=== PATIENT | male | born 1950 | race Caucasian/White ===

== ENCOUNTER 2016-12-16 17:21 | Emergency (ER) | payer OTHER ==
[~2016-12-16] VITALS: Ht 180.3 cm; Wt 102.1 kg
[~2016-12-16 17:21] MED LIST: CALC667C6 PO; MULT-208 PO; NAPR500T PO
[2016-12-16 18:06] VITALS: BP 152/92
[2016-12-16] MEDS ORDERED: EYE-STREAM OPHTH SOLUTION 120 ML BOTTLE. OD ONE (18:30)
[2016-12-16] MEDS ORDERED: FLUORESCEIN OPHTH TEST STRIP. OD ONE (18:30)
[2016-12-16] MEDS ORDERED: TETRACAINE 0.5% OPHTH SOLUTION 4ML BOTTLE. OD ONE (18:30)
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
[2016-12-16] MEDS ORDERED: POLY10DR OD (18:44)
[2016-12-16] MEDS ORDERED: HYDR-971 PO (18:44)
== END 2016-12-16 18:45 | disposition home or self-care (01) ==
LOC: ER 17:21
DX: S00.211A Abrasion of right eyelid and periocular area, initial encounter (principal); Z91.018 Allergy to other foods; X58.XXXA Exposure to other specified factors, initial encounter; Y93.89 Activity, other specified; Y92.89 Other specified places as the place of occurrence of the external cause; Y99.8 Other external cause status
CPT/HCPCS: 99283

== ENCOUNTER 2017-06-08 21:13 | Emergency (ER) | payer BC, OTHER ==
[~2017-06-08] VITALS: Ht 180.3 cm; Wt 102.1 kg
[~2017-06-08 21:13] MED LIST changes: +HYDR-971 PO; +POLY10DR OD
[2017-06-08 21:53] LABS: BASO % 1 % (0-3); EOS % 3 % (0-3); HEMATOCRIT 43.2 % (39.0-53.0); HEMOGLOBIN 14.6 g/dL (13.0-17.5); LYMPH # 1.8 x10^3/uL (1.0-4.8); LYMPH % 34 % (24-48); MEAN CORPUSCULAR HEMOGLOBIN 31 pg (25-35); MEAN CORPUSCULAR HGB CONC 34 g/dL (31-37); MEAN CORPUSCULAR VOLUME 92 fL (79-100); MONO % 14 % (0-9); NEUT % 48 % (31-73); PLATELET COUNT 204 x10^3/uL (140-400); RED BLOOD COUNT 4.67 x10^6/uL (4.30-5.70); RED CELL DISTRIBUTION WIDTH 13.3 % (11.5-14.5); WHITE BLOOD COUNT 5.4 x10^3/uL (4.0-11.0)
[2017-06-08] MEDS ORDERED: IV NORMAL SALINE 1000ML BAG 1,000 ML IV ONE (22:00)
[2017-06-08 22:03] LABS: CALCIUM 8.9 mg/dL (8.5-10.1); CREATININE 1.2 mg/dL (0.7-1.3); POTASSIUM 4.1 mmol/L (3.5-5.1); PROTHROMBIN TIME PATIENT 12.5 SEC (11.7-14.0)
[2017-06-08 22:11] LABS: ALBUMIN 3.8 g/dL (3.4-5.0); ALBUMIN/GLOBULIN RATIO 1.1 (1.0-1.7); TOTAL BILIRUBIN 0.4 mg/dL (0.2-1.0); TOTAL PROTEIN 7.3 g/dL (6.4-8.2)
[2017-06-08 22:59] LABS: NEG OBC FOB NEG; POS OBC FOB POS
--- NOTE | 2017-06-08 23:12 | PHYS DOC ---
Past Medical History Past Medical History: Hypertension, Other Additional Past Medical Histor: indigestion Past Surgical History: Other Additional Past Surgical Histo: vericose vein bilat Alcohol Use: Rarely Drug Use: None Adult General Chief Complaint Chief Complaint: BLOODY STOOL HPI HPI Patient is a 66 year old male who presents ambulatory to the ED with the complaint of bloody stools today. Patient states he has had loose stools for one or 2 days which he attributed to eating a lot of fresh vegetables. This morning he had a loose stool that was really dark in color, not black but very dark brown. Then early this afternoon he had a loose stool that had quite a bit of blood in, then later today had a third stool that appeared to just be liquid blood, no stool but just straight blood. He's had no nausea or vomiting. He's never had blood in his stool before. He has not really had abdominal pain, he has had the feeling that he needed to have a bowel movement like a fullness and slight cramping but no pain. He denies fever or chills. PCP Dr. King JOHAN Chong, his colonoscopy is up to date, his last one was 2-3 years ago. He does have a family history of colon cancer in his father and grandfather. Review of Systems Review of Systems Constitutional: Denies fever or chills [] Eyes: Denies change in visual acuity, redness, or eye pain [] HENT: Denies nasal congestion or sore throat [] Respiratory: Denies cough or shortness of breath [] Cardiovascular: No additional information not addressed in HPI [] GI: Denies abdominal pain, nausea, vomiting, bloody stools or diarrhea [] : Denies dysuria or hematuria [] Musculoskeletal: Denies back pain or joint pain [] Integument: Denies rash or skin lesions [] Neurologic: Denies headache, focal weakness or sensory changes [] Endocrine: Denies polyuria or polydipsia [] Current Medications Current Medications Current Medications Medications (Trade) Dose Ordered Sig/Fabrizio Start Time Stop Time Status Last Admin Dose Admin Sodium Chloride 1,000 ml @ 1,000 mls/hr 1X ONCE 06/08/17 22:00 06/08/17 22:59 DC 06/08/17 21:58 1,000 MLS/HR Allergies Allergies Allergies Coded Allergies Type Severity Reaction Last Updated Verified mushroom Allergy Intermediate Nausea 12/16/15 Yes No Known Allergies Allergy Unknown 10/26/15 Yes Physical Exam Physical Exam Constitutional: Well developed, well nourished, no acute distress, non-toxic appearance. [] HENT: Normocephalic, atraumatic, bilateral external ears normal, oropharynx moist, no oral exudates, nose normal. [] Eyes: PERRLA, EOMI, conjunctiva normal, no discharge. [] Neck: Normal range of motion, no tenderness, supple, no stridor. [] Cardiovascular:Heart rate regular rhythm, no murmur [] Lungs & Thorax: Bilateral breath sounds clear to auscultation [] Abdomen: Bowel sounds normal, soft, no tenderness, no masses, no pulsatile masses. [] Skin: Warm, dry, no erythema, no rash. [] Back: No tenderness, no CVA tenderness. [] Extremities: No tenderness, no cyanosis, no clubbing, ROM intact, no edema. [] Neurologic: Alert and oriented X 3, normal motor function, normal sensory function, no focal deficits noted. [] Psychologic: Affect normal, judgement normal, mood normal. [] Current Patient Data Vital Signs Vital Signs Date Time Temp Pulse Resp B/P (MAP) Pulse Ox O2 Delivery O2 Flow Rate FiO2 06/08/17 21:20 98.4 77 16 167/94 (118) 97 Room Air 98.4 Lab Values Laboratory Tests Test 06/08/17 21:27 06/08/17 22:46 White Blood Count 5.4 x10^3/uL (4.0-11.0) Red Blood Count 4.67 x10^6/uL (4.30-5.70) Hemoglobin 14.6 g/dL (13.0-17.5) Hematocrit 43.2 % (39.0-53.0) Mean Corpuscular Volume 92 fL (79-100) Mean Corpuscular Hemoglobin 31 pg (25-35) Mean Corpuscular Hemoglobin Concent 34 g/dL (31-37) Red Cell Distribution Width 13.3 % (11.5-14.5) Platelet Count 204 x10^3/uL (140-400) Neutrophils (%) (Auto) 48 % (31-73) Lymphocytes (%) (Auto) 34 % (24-48) Monocytes (%) (Auto) 14 % (0-9) H Eosinophils (%) (Auto) 3 % (0-3) Basophils (%) (Auto) 1 % (0-3) Neutrophils # (Auto) 2.6 x10^3uL (1.8-7.7) Lymphocytes # (Auto) 1.8 x10^3/uL (1.0-4.8) Monocytes # (Auto) 0.8 x10^3/uL (0.0-1.1) Eosinophils # (Auto) 0.2 x10^3/uL (0.0-0.7) Basophils # (Auto) 0.0 x10^3/uL (0.0-0.2) Prothrombin Time 12.5 SEC (11.7-14.0) Prothrombin Time INR 1.0 (0.8-1.1) PTT 30 SEC (24-38) Sodium Level 139 mmol/L (136-145) Potassium Level 4.1 mmol/L (3.5-5.1) Chloride Level 103 mmol/L (98-107) Carbon Dioxide Level 25 mmol/L (21-32) Anion Gap 11 (6-14) Blood Urea Nitrogen 16 mg/dL (8-26) Creatinine 1.2 mg/dL (0.7-1.3) Estimated GFR (Cockcroft-Gault) 61.0 BUN/Creatinine Ratio 13 (6-20) Glucose Level 97 mg/dL (70-99) Calcium Level 8.9 mg/dL (8.5-10.1) Total Bilirubin 0.4 mg/dL (0.2-1.0) Aspartate Amino Transferase (AST) 22 U/L (15-37) Alanine Aminotransferase (ALT) 31 U/L (16-63) Alkaline Phosphatase 73 U/L (46-116) Total Protein 7.3 g/dL (6.4-8.2) Albumin 3.8 g/dL (3.4-5.0) Albumin/Globulin Ratio 1.1 (1.0-1.7) Stool Occult Blood Positive (NEG) Laboratory Tests 06/08/17 21:27 Laboratory Tests 06/08/17 21:27 EKG EKG [] Radiology/Procedures Radiology/Procedures [] Course & Med Decision Making Course & Med Decision Making Pertinent Labs and Imaging studies reviewed. (See chart for details) Patient had 1 stool that appeared to be mostly chris blood in the ED measuring less than 10 mL of blood. 66-year-old male presented with 2 or 3 bloody stools today at home, was in the emergency department for 2 hours and had only one small bloody stool here. He has no fever, no abdominal pain or tenderness, no white count. His hemoglobin is very stable at 14.6. He was given a liter of IV normal saline while here. He was never tachycardic. I discussed with the patient and his . I feel discharged to home with close follow-up versus admission would both be reasonable options. The patient is not on any blood thinners, not even aspirin. The patient prefers to be discharged. He lives close by and can return if necessary. We discussed return precautions. He does have a GI physician who he can contact on Saturday. See instructions for plan. [] Dragon Disclaimer Dragon Disclaimer This electronic medical record was generated, in whole or in part, using a voice recognition dictation system. Departure Departure Impression: Primary Impression: Lower GI bleed Disposition: HOME, SELF-CARE Condition: STABLE Referrals: Jeremy HARVEY MD (PCP) Additional Instructions: As we discussed, drink plenty of liquids over the next day. Stick to mostly clear liquids. Call on Saturday morning to report how you are doing to Dr. Chong's office. You likely need to have a colonoscopy scheduled soon, How soon will depend on whether you continue to have bleeding or not. If you continue to have a large volume of blood several times, you may need to return to emergency. If you become weak, faint, or lightheaded, return right away. If you are concerned about the amount of blood you're losing, return to be hospitalized. RG SIGALA MD Jun 08, 2017 23:12
[2017-06-08 23:16] VITALS: BP 137/95
== END 2017-06-08 23:38 | disposition home or self-care (01) ==
LOC: ER 21:13
DX: K92.2 Gastrointestinal hemorrhage, unspecified (principal); I10 Essential (primary) hypertension; Z91.018 Allergy to other foods
CPT/HCPCS: 36415; 80053; 82274; 85027; 85610; 85730; 96360; 99284; J7030

== ENCOUNTER → 2017-11-08 | Outpatient (CLI) | payer MEDICARE | END | disposition home or self-care (01) | LOC: KCIC 11:12 | DX: J40 Bronchitis, not specified as acute or chronic (principal); R05 Cough | CPT/HCPCS: 71046 ==

== ENCOUNTER → 2018-03-25 | Outpatient (CLI) | payer MEDICARE | END | disposition home or self-care (01) | LOC: KCIC US 14:57 | DX: I82.492 Acute embolism and thrombosis of other specified deep vein of left lower extremity (principal) | CPT/HCPCS: 93971 ==

== ENCOUNTER → 2018-07-22 | Outpatient (CLI) | payer MEDICARE ==
[2018-01-31 11:00] VITALS: BP 106/65
[~2018-07-22] MED LIST changes: +APIX5TAB PO; +LOSA100T7 PO; +NAPR-683 PO; -NAPR500T PO; +OMEP20CA9 PO
--- NOTE | 2018-07-22 16:06 | KCIC ---
EXAM: Left lower extremity venous Doppler sonogram. HISTORY: DVT follow-up. TECHNIQUE: Kelly scale and color Doppler sonographic evaluation of the left lower extremity veins with spectral waveform analysis was performed. FINDINGS: There is stable chronic appearing thrombus within the anterior left peroneal vein. There is normal color flow, normal compressibility and there are normal spectral waveforms in the remainder of the lower extremity veins. IMPRESSION: Stable chronic appearing prominence within the anterior left peroneal vein. Electronically signed by: Billie Kay MD (07/22/2018 4:03 PM) [place] [id number]
== END | disposition home or self-care (01) ==
LOC: KCIC US 15:29
PROVIDERS: ATTEND Family Medicine
DX: I82.592 Chronic embolism and thrombosis of other specified deep vein of left lower extremity (principal); I25.10 Atherosclerotic heart disease of native coronary artery without angina pectoris; Z86.711 Personal history of pulmonary embolism; Z85.6 Personal history of leukemia; Z91.018 Allergy to other foods; Z80.0 Family history of malignant neoplasm of digestive organs; Z80.6 Family history of leukemia; Z82.49 Family history of ischemic heart disease and other diseases of the circulatory system
CPT/HCPCS: 93971

== ENCOUNTER → 2018-11-13 | Outpatient (CLI) | payer MEDICARE ==
[2018-01-31 11:00] VITALS: BP 106/65
[~2018-11-13] MED LIST changes: +HYDR-3164 PO; -HYDR-971 PO; +LOSA100T14 PO; -LOSA100T7 PO; +OMEP20CA10 PO; -OMEP20CA9 PO
--- NOTE | 2018-11-13 10:39 | CARD ---
MR#: [id number] Date of Study: 11/13/2018 Ordering Physician: IVN CARIAS, Referring Physician: VIN CARIAS, Tech: Linda Nichols [facility] APPROVED REPORT EXAM: Two-dimensional and M-mode echocardiogram with Doppler and color Doppler. Other Information Quality : GoodHR: 85bpm Rhythm : PVC's INDICATION History of PE 2D DIMENSIONS RVDd3.3 (2.9-3.5cm)Left Atrium(2D)4.0 (1.6-4.0cm) IVSd1.1 (0.7-1.1cm)Aortic Root(2D)3.6 (2.0-3.7cm) LVDd5.1 (3.9-5.9cm)LVOT Diameter2.6 (1.8-2.4cm) PWd0.9 (0.7-1.1cm)LVDs3.1 (2.5-4.0cm) FS (%) 40.1 %SV89.0 ml LVEF(%)69.0 (>50%) M-Mode DIMENSIONS Left Atrium(MM)4.89 (2.5-4.0cm)Aortic Root3.98 (2.2-3.7cm) Aortic Valve AoV Peak Fam.124.5cm/sAoV VTI24.3cm AO Peak GR.6.2mmHgLVOT Peak Fam.88.9cm/s AO Mean GR.3mmHgAVA (VMAX)3.76cm2 ASHLEY (VTI)3.50cm2 Mitral Valve MV E Yvwojfev26.1cm/sMV DECEL ALMU767mx MV A Mezkcfwk347.8cm/sE/A Ratio0.8 MV A Tngcuhky516di Pulmonary Valve PV Peak Qxpjukti55.4cm/s Tricuspid Valve TR P. Pcllzxln805vz/sRAP GJGLCHXZ0ryNh TR Peak Gr.10wcEzNYQC51ttBu LEFT VENTRICLE The left ventricle is normal size. There is mild concentric left ventricular hypertrophy. The left ve ntricular systolic function is normal and the ejection fraction is within normal range. The Ejection Fraction is 60-65%. There is normal LV segmental wall motion. The left ventricular diastolic function and filling is normal for age. No left ventricle thrombus noted on this study. RIGHT VENTRICLE The right ventricle is borderline dilated. There is normal right ventricular wall thickness. The righ t ventricular systolic function is normal. ATRIA The left atrium is mildly dilated. The right atrium size is normal. The interatrial septum is intact with no evidence for an atrial septal defect or patent foramen ovale as noted on 2-D or Doppler imagi ng. AORTIC VALVE The aortic valve is mildly sclerotic. The aortic valve is trileaflet. Doppler and Color Flow revealed no significant aortic regurgitation. There is no significant aortic valvular stenosis. MITRAL VALVE The mitral valve is normal in structure and function. There is no evidence of mitral valve prolapse. There is no mitral valve stenosis. Doppler and Color Flow revealed no mitral valve regurgitation note d. TRICUSPID VALVE The tricuspid valve is normal in structure and function. Doppler and Color Flow revealed trace tricus pid regurgitation. The PA pressure was estimated at 28 mmHg. There is no tricuspid valve prolapse or vegetation. There is no tricuspid valve stenosis. PULMONIC VALVE Pulmonic valve not well visualized. GREAT VESSELS The aortic root is mildly enlarged. The ascending aorta is normal in size. The IVC is normal in size and collapses >50% with inspiration. PERICARDIAL EFFUSION There is no evidence of significant pericardial effusion. Critical Notification Critical Value: No <Conclusion> The left ventricular systolic function is normal and the ejection fraction is within normal range. Th e Ejection Fraction is 60-65%. There is normal LV segmental wall motion. Signed by : Nash Hartley, Electronically Approved : 11/13/2018 10:37:51
== END | disposition home or self-care (01) ==
LOC: ECHO 09:56
PROVIDERS: ATTEND Internal Medicine Cardiovascular Disease
DX: I35.8 Other nonrheumatic aortic valve disorders (principal); I10 Essential (primary) hypertension
CPT/HCPCS: 93306

== ENCOUNTER → 2018-11-18 | Outpatient (CLI) | payer MEDICARE ==
[2018-01-31 11:00] VITALS: BP 106/65
[2018-11-18 11:35] LABS: BASO # 0.1 x10^3/uL (0.0-0.2); BASO % 1 % (0-3); EOS # 0.2 x10^3/uL (0.0-0.7); EOS % 4 % (0-3); HEMOGLOBIN 14.9 g/dL (13.0-17.5); LYMPH # 1.8 x10^3/uL (1.0-4.8); LYMPH % 31 % (24-48); MEAN CORPUSCULAR HEMOGLOBIN 31 pg (25-35); MEAN CORPUSCULAR HGB CONC 35 g/dL (31-37); MEAN CORPUSCULAR VOLUME 90 fL (79-100); MONO # 0.7 x10^3/uL (0.0-1.1); MONO % 12 % (0-9); NEUT % 53 % (31-73); PLATELET COUNT 214 x10^3/uL (140-400); RED BLOOD COUNT 4.76 x10^6/uL (4.30-5.70); RED CELL DISTRIBUTION WIDTH 13.2 % (11.5-14.5); WHITE BLOOD COUNT 5.7 x10^3/uL (4.0-11.0)
[2018-11-18 12:11] LABS: CALCIUM 9.4 mg/dL (8.5-10.1); GFR 74.8; POTASSIUM 4.2 mmol/L (3.5-5.1)
== END | disposition home or self-care (01) ==
LOC: LAB 11:13
PROVIDERS: ATTEND Internal Medicine Cardiovascular Disease
DX: I49.3 Ventricular premature depolarization (principal); Z86.711 Personal history of pulmonary embolism
CPT/HCPCS: 36415; 80048; 83735; 85025

== ENCOUNTER → 2018-11-25 | Outpatient (CLI) | payer MEDICARE ==
[2018-01-31 11:00] VITALS: BP 106/65
[~2018-11-25] MED LIST changes: -OMEP20CA10 PO; +OMEP20CA9 PO
--- NOTE | 2018-11-25 13:50 | KCIC ---
LEFT LOWER EXTREMITY ULTRASOUND WITH DOPPLER 11/25/2018 12:30 PM Clinical Information: History of acute DVT in the left lower extremity.. Comparison: Venous Doppler July 22, 2018. Technique: Multiple grayscale, color Doppler, and spectral Doppler sonographic images of the lower extremity venous structures were obtained. Findings: Greater saphenous vein is patent. The left common femoral, femoral, and popliteal veins exhibit normal compression, respiratory phasicity, and augmentation. No intraluminal thrombi are identified. Color Doppler flow is demonstrated in the left peroneal veins. Small chronic nonocclusive thrombus is identified within the anterior posterior tibial vein in the proximal calf. Impression: 1. Nonocclusive thrombus is identified in the posterior tibial vein with the proximal calf. Findings are not significantly changed since prior examination. Electronically signed by: Penelope Parker MD (11/25/2018 1:46 PM) [facility]
== END | disposition home or self-care (01) ==
LOC: KCIC US 11:55
PROVIDERS: ATTEND Family Medicine
DX: I82.442 Acute embolism and thrombosis of left tibial vein (principal)
CPT/HCPCS: 93971

== ENCOUNTER → 2019-12-15 | Outpatient (CLI) | payer MEDICARE ==
[2018-01-31 11:00] VITALS: BP 106/65
[~2019-12-15] MED LIST changes: +OMEP20CA16 PO; -OMEP20CA9 PO
--- NOTE | 2019-12-16 13:21 | RAD ---
MR#: [id number] Date of Study: 12/15/2019 Ordering Physician: VIN CARIAS, Referring Physician: VIN CARIAS, Tech: Jean Claude Buck MBA, RDMS, RVT, RDCS, RTR APPROVED REPORT Patient Location : OUT-PATIENT Indications Lower Extremity Edema : Bilateral Lesser Saphenous Veins (LSV) Significant venous reflux is noted in the Left LSV. Findings The right and left greater saphenous veins appear to be previously stripped and not visualized on the study. The right lesser saphenous vein is also not visualized on the study The left lesser saphenous vein measures 4.8 mm and has a maximum reflux time of 3.3 seconds. Critical Notification Critical Value: No <Conclusion> 1. Positive for reflux and left lesser saphenous vein. The bilateral greater and right lesser sapheno us veins were not visualized and may have been previously ablated/stripped. Signed by : Nash Hartley, Electronically Approved : 12/15/2019 09:53:48
--- NOTE | 2019-12-16 13:21 | CARD ---
MR#: [id number] Date of Study: 12/15/2019 Ordering Physician: VIN CARIAS, Referring Physician: VIN CARIAS, Tech: Nida Weinstien [facility] APPROVED REPORT EXAM: Two-dimensional and M-mode echocardiogram with Doppler and color Doppler. Other Information Quality : GoodHR: 80bpm Rhythm : NSRTechnically limited study due to body habitus. INDICATION History of pulmonary embolism. HTN. 2D DIMENSIONS RVDd3.8 (2.9-3.5cm)IVSd1.0 (0.7-1.1cm) Aortic Root(2D)3.7 (2.0-3.7cm)LVDd5.2 (3.9-5.9cm) LVOT Diameter2.5 (1.8-2.4cm)PWd1.0 (0.7-1.1cm) LVDs3.6 (2.5-4.0cm)FS (%) 31.6 % SV77.1 mlLVEF(%)59.2 (>50%) Aortic Valve AoV Peak Fam.144.8cm/Diony Peak GR.8.4mmHg LVOT Peak Fam.99.5cm/sAVA (VMAX)3.40cm2 Mitral Valve MV E Akpjyutx93.5cm/sMV DECEL [id number] MV A Rhgodeyv13.5cm/sE/A Ratio0.8 MV A Kprojusy373gx Pulmonary Valve PV Peak Gdqwktyt88.2cm/s Tricuspid Valve TR P. Bfyqjitg360pk/sTR Peak Gr.23mmHg Pulmonary Vein S1 Oiqrrpeq61.3cm/sD2 Xzcizbiw94.0cm/s PVa ubeoxpeq851ufhe LEFT VENTRICLE The left ventricle is normal size. Mild proximal septal thickening is noted. The left ventricular sys tolic function is normal. The Ejection Fraction is 55-60%. There is normal LV segmental wall motion. Transmitral Doppler flow pattern is Grade I-abnormal relaxation pattern. RIGHT VENTRICLE The right ventricle is normal size. The right ventricular systolic function is normal. ATRIA The left atrium size is normal. The right atrium size is normal. The atrial septum is aneurysmal. No shunting noted with color doppler. AORTIC VALVE The aortic valve is normal in structure and function. No aortic regurgitation. No aortic valvular tarah nosis. MITRAL VALVE The mitral valve is normal in structure and function. There is no evidence of mitral valve prolapse. There is no mitral valve stenosis. No mitral valve regurgitation noted. TRICUSPID VALVE The tricuspid valve is normal in structure and function. Trace tricuspid regurgitation. Estimated PAP is 23mmHg plus the right atrial pressure. There is no tricuspid valve prolapse or vegetation. There is no tricuspid valve stenosis. PULMONIC VALVE Trace pulmonic valvular regurgitation. There is no pulmonic valvular stenosis. GREAT VESSELS The aortic root is normal in size. The ascending aorta is mildly dilated at 4.0 cm The IVC was not we ll visualized. PERICARDIAL EFFUSION There is no evidence of significant pericardial effusion. Critical Notification Critical Value: No <Conclusion> The left ventricular systolic function is normal. The Ejection Fraction is 55-60%. There is normal LV segmental wall motion. The atrial septum is aneurysmal. No shunting noted with color doppler. Trace tricuspid regurgitation. Estimated PAP is 23mmHg plus the right atrial pressure. The ascending aorta is mildly dilated at 4.0 cm Signed by : Nash Hartley, Electronically Approved : 12/15/2019 09:30:12
--- NOTE | 2019-12-16 13:21 | RAD ---
MR#: [id number] Date of Study: 12/15/2019 Ordering Physician: VIN CARIAS, Referring Physician: VIN CARIAS, Tech: Jean Claude Buck MBA, RDMS, RVT, RDCS, RTR APPROVED REPORT Bilateral Lower Extremity Venous Study for DVT Patient Location: OUT-PATIENT Indications Lower Extremity Edema: Bilateral Vein Imaging (Right) CFV (R): Compressible SFJ (R): Compressible FEM (R): Compressible POP (R): Compressible DFV (R): Compressible PTV (R): Spontaneous GSV (R): STRIPPED Peroneals (R): Spontaneous Vein Imaging (Left) CFV (L): Compressible SFJ (L): Compressible FEM (L): Compressible POP (L): Compressible DFV (L): Compressible GSV (L): ABLATED, ABSENTFLOW Peroneals (L): Spontaneous Doppler Evaluation (Right) CFV (R): Spontaneous POP (R):Spontaneous Doppler Evaluation (Left) CFV (L):Spontaneous POP (L):Spontaneous Findings The bilateral lower extremity deep veins were evaluated for thrombus with color Doppler, spectral and grayscale images. On the right the grayscale images of the common femoral, superficial femoral and popliteal veins do n ot demonstrate any evidence of thrombus and these veins appear to be compressible. The below-knee vei ns were not well visualized but grossly appear to be compressible. Spectral imaging and color Doppler do not reveal any evidence of obstruction to flow with normal respirophasic variation above the knee . Below the knee there is spontaneous flow noted. On the left, the grayscale images of the common femoral, superficial femoral and popliteal veins do n ot demonstrate any evidence of thrombus and these veins appear to be compressible. The below-knee vei ns again were not well visualized but grossly appear to be compressible. Spectral imaging and color D oppler do not reveal any evidence of obstruction to flow with normal respirophasic variation above th e knee. The below-knee veins demonstrate spontaneous flow. Critical Notification Critical Value: No <Conclusion> 1. No evidence of DVT in the BLE Signed by : Nash Hartley, Electronically Approved : 12/15/2019 09:51:44
== END | disposition home or self-care (01) ==
LOC: US 07:55
PROVIDERS: ATTEND Internal Medicine Cardiovascular Disease
DX: I10 Essential (primary) hypertension (principal); R60.0 Localized edema; Z86.711 Personal history of pulmonary embolism
CPT/HCPCS: 93306; 93970

== ENCOUNTER → 2020-01-20 | Outpatient (CLI) | payer MEDICARE ==
[2018-01-31 11:00] VITALS: BP 106/65
[2020-01-20 10:48] LABS: BASO % 1 % (0-3); EOS # 0.2 x10^3/uL (0.0-0.7); EOS % 4 % (0-3); HEMATOCRIT 44.3 % (39.0-53.0); HEMOGLOBIN 15.2 g/dL (13.0-17.5); LYMPH # 1.5 x10^3/uL (1.0-4.8); LYMPH % 29 % (24-48); MEAN CORPUSCULAR HEMOGLOBIN 32 pg (25-35); MEAN CORPUSCULAR HGB CONC 34 g/dL (31-37); MEAN CORPUSCULAR VOLUME 92 fL (79-100); MONO # 0.5 x10^3/uL (0.0-1.1); MONO % 9 % (0-9); NEUT # 2.9 x10^3/uL (1.8-7.7); NEUT % 57 % (31-73); PLATELET COUNT 216 x10^3/uL (140-400); RED BLOOD COUNT 4.82 x10^6/uL (4.30-5.70); RED CELL DISTRIBUTION WIDTH 13.4 % (11.5-14.5); WHITE BLOOD COUNT 5.2 x10^3/uL (4.0-11.0)
[2020-01-20 11:05] LABS: ALBUMIN 3.5 g/dL (3.4-5.0); CALCIUM 8.9 mg/dL (8.5-10.1); CHOLESTEROL/HDL RATIO 3.3; CREATININE 1.1 mg/dL (0.7-1.3); GFR 66.8; POTASSIUM 4.3 mmol/L (3.5-5.1); TOTAL BILIRUBIN 0.4 mg/dL (0.2-1.0); TOTAL PROTEIN 6.9 g/dL (6.4-8.2)
== END | disposition home or self-care (01) ==
LOC: LAB 10:24
PROVIDERS: ATTEND Family Medicine
DX: I10 Essential (primary) hypertension (principal); Z12.5 Encounter for screening for malignant neoplasm of prostate; Z13.220 Encounter for screening for lipoid disorders
CPT/HCPCS: 36415; 80053; 80061; 85025; G0103

== ENCOUNTER → 2020-01-20 | Outpatient (CLI) | payer MEDICARE ==
[2018-01-31 11:00] VITALS: BP 106/65
--- NOTE | 2020-01-20 12:52 | KCIC ---
EXAM: PA and lateral views DATE: 01/20/2020 12:00 AM INDICATION: BRONCHITIS, PRODUCTIVE COUGH A FEW MONTHS. NO FEVER COMPARISON: No Prior FINDINGS/ IMPRESSION: Mild emphysematous changes are seen. Heart is not enlarged. Aorta is mildly tortuous. No lobar consolidation. No pleural effusion or pneumothorax. Electronically signed by: Ashwin Dale MD (01/20/2020 12:50 PM) [id number]
--- NOTE | 2020-01-20 12:54 | KCIC ---
EXAM: 3 Views Right Shoulder DATE: 01/20/2020 12:00 AM INDICATION: Right shoulder pain COMPARISON: No Prior FINDINGS: There is no evidence for acute fracture or dislocation. AC joint is congruent. AC joint degenerative changes are seen. Small inferior glenohumeral joint osteophytes are seen. Humeral head is not high riding. IMPRESSION: 1. No acute fracture or dislocation. 2. AC joint and glenohumeral joint degenerative changes are seen. Electronically signed by: Ashwin Dale MD (01/20/2020 12:51 PM) [id number]
== END | disposition home or self-care (01) ==
LOC: KCIC 10:52
PROVIDERS: ATTEND Family Medicine
DX: M19.011 Primary osteoarthritis, right shoulder (principal); M25.711 Osteophyte, right shoulder; J43.9 Emphysema, unspecified; Q25.46 Tortuous aortic arch
CPT/HCPCS: 71046; 73030

== ENCOUNTER → 2020-05-25 | Outpatient (CLI) | payer MEDICARE ==
[2018-01-31 11:00] VITALS: BP 106/65
--- NOTE | 2020-05-25 13:06 | KCIC ---
EXAM: Lumbar spine, 5 views. HISTORY: Left leg weakness and numbness. COMPARISON: None. FINDINGS: 5 views of the lumbar spine are obtained. There are 4 nonrib-bearing vertebral segments. This is a normal variant. For the purposes of this dictation, the last segment is considered a sacralized L5 segment with rudimentary L5-S1 disc. There is degenerative endplate remodeling at multiple levels. There is facet arthropathy at the lower lumbar levels. No fracture or significant listhesis is seen. IMPRESSION: 1. Transitional lumbosacral segment, a normal variant. 2. Multilevel endplate remodeling and facet arthropathy. Electronically signed by: Billie Kay MD (05/25/2020 1:03 PM) [id number]
== END | disposition home or self-care (01) ==
LOC: KCIC 12:44
PROVIDERS: ATTEND Family Medicine
DX: M47.816 Spondylosis without myelopathy or radiculopathy, lumbar region (principal); M51.87 Other intervertebral disc disorders, lumbosacral region; R29.898 Other symptoms and signs involving the musculoskeletal system
CPT/HCPCS: 72110

== ENCOUNTER → 2020-06-20 | Outpatient (CLI) | payer MEDICARE ==
[2018-01-31 11:00] VITALS: BP 106/65
[~2020-06-20] MED LIST changes: +ACYC800T PO; +GABA300C18 PO; +PRED-220 PO; +TRAM50TA PO
--- NOTE | 2020-06-20 13:58 | KCIC ---
EXAM: Lumbar spine MRI without contrast. HISTORY: L4 radiculopathy. TECHNIQUE: Multiplanar, multisequence magnetic resonance imaging of the lumbar spine was performed without contrast. COMPARISON: Radiographs dated 05/25/2020. FINDINGS: There is a transitional sacral segment. This is considered a partially sacralized L5 segment based on the number of nonrib-bearing vertebral segments on the comparison radiographs. There is mild lumbar hyperlordosis. There is minimal retrolisthesis of L1 on L2 and L2 on L3. There is grade 1 anterolisthesis of L5 on S1, measuring 3 mm. There is no fracture or suspicious osseous lesion. The conus terminates at L1. At L1-L2, there is a disc bulge and endplate remodeling. There is mild bilateral facet arthropathy. There is mild retrolisthesis. There is mild bilateral foraminal stenosis. At L2-L3, there is a disc bulge and endplate osteophytosis. There is mild bilateral facet arthropathy. There is mild retrolisthesis. There is mild bilateral foraminal stenosis. At L3-L4, there is a right foraminal disc protrusion with 3 mm superior extrusion and osteophyte complex. There is also a broad-based left lateral recess to extra foraminal disc protrusion and 4 mm superior extrusion with osteophyte complex. These are superimposed on a disc bulge and endplate remodeling. There is moderate left facet arthropathy. There is moderate to severe right and severe left foraminal stenosis with abutment of the exiting L3 nerve roots. There is mild central canal stenosis. At L4-L5, there is a shallow broad-based posterior central to left paracentral disc protrusion and annular tear with minimal inferior extrusion superimposed on a disc bulge and endplate osteophytosis. There is mild bilateral facet arthropathy. There is mild right and moderate left foraminal stenosis. There is narrowing of the left lateral recess and abutment of the traversing left L5 nerve root. At L5-S1, there is a rudimentary disc at this level. There is grade 1 anterolisthesis. There is mild left facet arthropathy. There is no stenosis. IMPRESSION: 1. Transitional lumbosacral segment, considered a partially sacralized L5 segment for this dictation. 2. Multilevel degenerative change involving the lumbar spine, described in detail above. This is associated with mild lateral foraminal stenosis at L1-L2 and L2-L3, moderate to severe right and severe left foraminal stenosis with abutment the exiting L3 nerve roots and mild central canal stenosis at L3-L4, and mild right and moderate left foraminal stenosis and narrowing of the left lateral recess at L4-L5. 3. Mild multilevel listhesis, described above. Electronically signed by: Billie Kay MD (06/20/2020 1:55 PM) [id number]
== END | disposition home or self-care (01) ==
LOC: KCIC MRI 12:51
PROVIDERS: ATTEND Family Medicine
DX: M48.061 Spinal stenosis, lumbar region without neurogenic claudication (principal); M47.26 Other spondylosis with radiculopathy, lumbar region; M43.17 Spondylolisthesis, lumbosacral region; M25.78 Osteophyte, vertebrae; M47.27 Other spondylosis with radiculopathy, lumbosacral region
CPT/HCPCS: 72148

== ENCOUNTER → 2020-06-24 | Outpatient (CLI) | payer MEDICARE ==
[2018-01-31 11:00] VITALS: BP 106/65
[~2020-06-24] MED LIST changes: +IOHEXOL 180 MG/ML 10 ML VIAL. ONE; +methylPREDNISolone ACETATE 40 MG/ML VIAL. ONE; +methylPREDNISolone ACETATE 80 MG/ML VIAL. ONE
--- NOTE | 2020-06-24 13:59 | PDOC2 ---
INITIAL PAIN CONSULT DATE OF SERVICE: DOS: DATE: 06/24/20 TIME: 13:51 CHIEF COMPLAINT: Chief Complaint: Low back and left lower extremity pain HISTORY OF PRESENT ILLNESS: 69-year-old male presents with history of pain low back left lower extremity for approximately 1 month. Patient reports the pain came up without any specific injury or accident that is aware of just got worse over time and is now been increasing in the low back left lower extremity anterior thigh lateral thigh medial thigh medial lower leg and anterior lower leg to the ankle. Patient reports it is constant radiating changes during the day worse with activity walking standing and changing positions better with sitting or laying down does awaken her from sleep about 3-4 times a night however patient reports does not affect his bowel bladder control does affect his build to walk he is not use any assistive devices to ambulate however. Patient tried chiropractic treatment which was helpful for short period time so was acupuncture again mid limited relief. Patient has been taking tramadol as well as ibuprofen both of which decreased the pain but only to a mild extent. 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 Patient did have a lumbar MRI scan of the lumbar spine showing multilevel degenerative change lateral foraminal stenosis L1-L2 and L2-L3 moderate to severe right and severe left foraminal stenosis with abutment of the exiting L3 nerve roots and mild central canal stenosis L3-4 mild right and moderate left foraminal stenosis and narrowing at the left lateral recess at L4- 5. PAST MEDICAL HISTORY: PMH: Hypertension, arthritis PREVIOUS SURGERIES: Past Surgical Hx: Tonsillectomy vein stripping bilaterally CURRENT MEDICATIONS: Current Meds: Active Scripts Medications Dose Route/Sig Max Daily Dose Days Date Category Tramadol Hcl 50 Mg Tablet 50 Mg PO DAILY PRN 06/24/20 Reported Prednisone (Prednisone) 10 Mg Tablet 1 Tab PO BID 5 06/24/20 Reported Eliquis (Apixaban) 5 Mg Tablet 5 Mg PO PRN 06/24/20 Reported Acyclovir 800 Mg Tablet 800 Mg PO TID 06/24/20 Reported Gabapentin (Gabapentin) 300 Mg Capsule 300 Mg PO TID 06/24/20 Reported Losartan Potassium 100 Mg Tablet 100 Mg PO QHS 01/30/18 Reported Omeprazole 20 Mg Capsule. 1 Cap PO BID 01/30/18 Reported ALLERGIES; Allergies: Coded Allergies: mushroom (Verified Allergy, Intermediate, Nausea, 12/16/15) No Known Allergies (Verified Allergy, Unknown, 10/26/15) FAMILY HISTORY: Family Hx: Colon cancer SOCIAL HISTORY: Social Hx: Patient drinks alcohol about 1 alcoholic drink a week does not smoke does not use any illegal illicit or recreational drugs is lives with his spouse lives locally in [facility] patient reports he is currently retired. REVIEW OF SYSTEMS: ROS: Positive for those on admission his present illness all system reviewed otherwise negative complete formal document on patient's chart PHYSICAL EXAM: VS: Blood pressure 141/59 pulse 85 respirations 20 temperature is 98.4 F is 5 feet 11 his weight is 2 three 0 pound PE: PHYSICAL EXAMINATION: GENERAL: The patient is awake, alert, oriented, appropriate, very pleasant demeanor HEENT: Shows normocephalic, atraumatic. Extraocular movements are intact and symmetrical. Oral cavity: Mucous membranes moist and pink. Dentition is intact. NECK: Shows anterior throat supple without palpable lymphadenopathy noted. Swallow reflex symmetrical. CHEST: Shows normal on inspection. Breath sounds are clear bilaterally no rales rhonchi or wheezes auscultated. HEART: Shows S1, S2 clear. No murmurs auscultated. ABDOMEN: Soft, nontender, nondistended. No palpable organomegaly is noted. No rebound or guarding demonstrated. BACK: Shows spine grossly in the midline. Normal-appearing cervical lordotic curvature. There is slightly increased thoracic kyphosis, some minor flattening of the lumbar lordotic curvature. Lumbar paraspinous muscles show symmetrical on inspection, on palpation shows some moderate tenderness diffusely throughout the upper, middle and lower distribution of the paraspinous muscles bilaterally and also into the lower thoracic paraspinous musculature, but without specific trigger points, without radiation of pain. The patient has good rotational motion of the lumbar spine, both laterally as well as extension and flexion without significant difficulty. No tenderness over the spinous processes, sacrum or sacroiliac regions. EXTREMITIES: Lower extremities show deep tendon reflexes 2+ in the patellar and tendo calcaneus tendons. Motor exam is [] on a scale of 5 with right dorsiflexion, extension, quadriceps and hamstring flexion and 4/5 on the left. Peripheral pulses are 1+ posterior tibial. No peripheral edema is noted bilaterally. Lower extremities are warm and dry to touch, equal in color and appearance. Straight leg raise noted to be negative on the right, left side is positive at approximately 40 degrees decreased with knee flexion.. Gaenslen's and Ousmane's maneuvers are negative as well. The patient is able to stand, stand without difficulty on his toes walks with a normal-appearing gait does not appear to favor the right or left lower extremity significantly and not using any assistive devices to ambulate.. SKIN: Shows warm and dry, good turgor. No edema. No sores, rashes or bruising throughout. IMPRESSION: Impression: 69-year-old male with approximate 1 month history increasing pain low back left lower extremity radicular fashion. MRI scan lumbar spine as noted Hypertension Arthritis Plan: Options discussed with the patient, incuding conservative medical management physical therapy is interventional techniques and he would like to pursue interventional techniques. We discussed a lumbar epidural steroid just use description as well as anatomical models to describe the procedure. Risks were then discussed including but not limited to bleeding infection possibility of epidural hematoma subsequent neurological compromise dural puncture headache spinal cord and or nerve damage side effects of steroid medication and portal spine pain control. Patient understands wishes to proceed. Patient return to clinic approximately 2 weeks for follow-up. Was counseled as to return appointment activity level and side effects be aware of. Procedure is lumbar epidural steroid injection under local anesthetic using sterile prep and drape at the L3-4 level using C-arm fluoroscopic guidance in both AP and lateral views medications injected is 120 mg Depo-Medrol + 10 mL preservative-free normal saline and 2 mL contrast- condition at discharge is stable patient tolerated procedure well had no complications. ERICH MEI MD Jun 24, 2020 13:58
== END | disposition home or self-care (01) ==
LOC: PNCL 08:14
PROVIDERS: ATTEND Anesthesiology
DX: M54.5 Low back pain (principal); M79.662 Pain in left lower leg; I10 Essential (primary) hypertension; M19.90 Unspecified osteoarthritis, unspecified site; K21.9 Gastro-esophageal reflux disease without esophagitis; Z80.0 Family history of malignant neoplasm of digestive organs; Z79.899 Other long term (current) drug therapy
CPT/HCPCS: 62323; J1030; J1040; Q9965

== ENCOUNTER → 2020-07-08 | Outpatient (CLI) | payer MEDICARE ==
[2018-01-31 11:00] VITALS: BP 106/65
--- NOTE | 2020-07-08 08:27 | PDOC ---
Progress Note - Pain Clinic Date of Service: DOS: DATE: 07/08/20 TIME: 08:23 Diagnosis: Dx: Lumbar radiculopathy with lumbar degenerative disc disease and lumbar spinal stenosis History or Present Illness: HPI: 69-year-old male returns follow-up status post lumbar epidurals injection x1. Patient reports doing much better about 50% improvement after the injection patient reports is been walking greater distances doing work activities household activities traveling with greater ease and comfort. Patient reports no new motor or sensory deficits pain low back and left lower extremity described as aching and dull sometimes burning in the lower leg in the lateral aspect in the medial aspect of the left lower leg in the medial thigh and anterior thigh as well as in the back itself patient rates his pain is a 4 on a scale of 10 is worse in the past week for an average 3 this least is a 4 today. Patient reports no new motor or sensory deficits no bowel or bladder incontinence. Patient reports is been sleeping better 6 to 8 hours at night occasionally wakes him from sleep but only rarely patient ports the pain is decreased by about 50% and is still at that level today. Physical Exam: VS: Blood pressure is 130/92 pulse 83 respirations are 18 temperature 98.1 F height is 5 foot 11 inches weight is 232 pounds PE: PHYSICAL EXAMINATION: GENERAL: The patient is awake, alert, oriented, appropriate, very pleasant demeanor HEENT: Shows normocephalic, atraumatic. Extraocular movements are intact and symmetrical. Oral cavity: Mucous membranes moist and pink. NECK: Shows anterior throat supple without palpable lymphadenopathy noted. Swallow reflex symmetrical. CHEST: Shows normal on inspection. Breath sounds are clear bilaterally. HEART: Shows S1, S2 clear. No murmurs auscultated. ABDOMEN: Soft, nontender, nondistended. No palpable organomegaly is noted. No rebound or guarding demonstrated. BACK: Shows spine grossly in the midline. Normal-appearing cervical lordotic curvature. There is slightly increased thoracic kyphosis, some minor flattening of the lumbar lordotic curvature. Lumbar paraspinous muscles show symmetrical on inspection, on palpation shows some moderate tenderness diffusely throughout the upper, middle and lower distribution of the paraspinous muscles bilaterally, but without specific trigger points, without radiation of pain. The patient has good rotational motion of the lumbar spine, both laterally as well as extension and flexion without significant difficulty. No tenderness over the spinous processes, sacrum or sacroiliac regions. EXTREMITIES: Lower extremities show deep tendon reflexes 2+ in the patellar and tendo calcaneus tendons. Motor exam is 5 on a scale of 5 with right dorsiflexion, extension, quadriceps and hamstring flexion and 4/5 on the left. Peripheral pulses are 1+ posterior tibial. No peripheral edema is noted bilaterally. Lower extremities are warm and dry to touch, equal in color and appearance. Procedure: Procedure: Options were discussed with the patient. Patient's old chart was reviewed his his current medication regimen updated current review of systems updated today as well. We will proceed with a second in the series lumbar epidural straight injection today with fluoroscopic guidance risks again discussed including, but not limited to: Bleeding, infection, possibility of epidural hematoma and subsequent neurological compromise, dural puncture, headaches, spinal cord and/or nerve damage, side effects of steroid medication, and poor results regarding pain control. Patient understands wished to proceed. Patient return to clinic in approximate 2 weeks for follow-up was counseled as return appointment activity level and side effects to be aware of. Medication Injected: Med Injected: Procedure is lumbar epidural steroid injection under local anesthetic using sterile prep and drape at the L3-4 level using C-arm fluoroscopic guidance in both AP and lateral views medications injected is 120 mg Depo-Medrol + 10 mL preservative-free normal saline and 2 mL contrast- condition at discharge is stable patient tolerated procedure well had no complications. Condition at Discharge: Condition at Discharge: Condition at discharge stable patient tolerated procedure well had no complications. ERICH MEI MD Jul 08, 2020 08:27
== END | disposition home or self-care (01) ==
LOC: PNCL 07:53
PROVIDERS: ATTEND Anesthesiology
DX: M51.16 Intervertebral disc disorders with radiculopathy, lumbar region (principal); M48.061 Spinal stenosis, lumbar region without neurogenic claudication; Z80.0 Family history of malignant neoplasm of digestive organs; Z79.899 Other long term (current) drug therapy
CPT/HCPCS: 62323; J1030; J1040; Q9965

== ENCOUNTER → 2020-12-19 | Outpatient (CLI) | payer MEDICARE ==
[2018-01-31 11:00] VITALS: BP 106/65
[~2020-12-19] MED LIST changes: -IOHEXOL 180 MG/ML 10 ML VIAL. ONE; -methylPREDNISolone ACETATE 40 MG/ML VIAL. ONE; -methylPREDNISolone ACETATE 80 MG/ML VIAL. ONE
--- NOTE | 2020-12-19 14:05 | RAD ---
MR#: [id number] Date of Study: 12/19/2020 Ordering Physician: VIN CARIAS, Referring Physician: VIN CARIAS, Tech: Jean Claude Buck MBA, RDMS, RVT, RDCS, RTR APPROVED REPORT Patient Location : OUT-PATIENT Indications Lower Extremity Edema : Bilateral Lesser Saphenous Veins (LSV) Significant venous reflux is noted in the Left LSV. Findings The bilateral greater saphenous veins are not visualized and likely previously ablated or stripped ba sed on patient's history. The right lesser saphenous vein is not visualized. The left lesser saphenous vein measures 3.5 mm an d has a reflux time of 3 seconds. Critical Notification Critical Value: No <Conclusion> 1. The bilateral greater saphenous veins based on history were previously ablated or stripped 2. Positive for reflux in the left lesser saphenous vein 3. Right lesser saphenous vein is not visualized, correlate with clinical history of previous ablati on or stripping. Signed by : Nash Hartley, Electronically Approved : 12/19/2020 14:05:01
--- NOTE | 2020-12-19 14:06 | RAD ---
MR#: [id number] Date of Study: 12/19/2020 Ordering Physician: VIN CARIAS, Referring Physician: VIN CARIAS, Tech: Jean Claude Buck MBA, RDMS, RVT, RDCS, RTR APPROVED REPORT Bilateral Lower Extremity Venous Study for DVT Patient Location: OUT-PATIENT Indications Lower Extremity Edema: Bilateral Vein Imaging (Right) CFV (R): Compressible SFJ (R): Compressible FEM (R): Compressible POP (R): Compressible DFV (R): Compressible PTV (R): Spontaneous Peroneals (R): Spontaneous Vein Imaging (Left) CFV (L): Compressible SFJ (L): Compressible FEM (L): Compressible POP (L): Compressible DFV (L): Spontaneous PTV (L): Spontaneous Peroneals (L): Spontaneous Doppler Evaluation (Right) CFV (R): Spontaneous POP (R):Spontaneous Doppler Evaluation (Left) CFV (L):Spontaneous POP (L):Spontaneous Findings The bilateral lower extremity deep veins were evaluated for thrombus with color Doppler, spectral and grayscale images. On the right the grayscale images of the common femoral, superficial femoral and popliteal veins do n ot demonstrate any evidence of thrombus and these veins appear to be compressible. The below-knee vei ns were not well visualized but grossly appear to be compressible. Spectral imaging and color Doppler do not reveal any evidence of obstruction to flow with normal respirophasic variation above the knee . Below the knee there is spontaneous flow noted. On the left, the grayscale images of the common femoral, superficial femoral and popliteal veins do n ot demonstrate any evidence of thrombus and these veins appear to be compressible. The below-knee vei ns again were not well visualized but grossly appear to be compressible. Spectral imaging and color D oppler do not reveal any evidence of obstruction to flow with normal respirophasic variation above th e knee. The below-knee veins demonstrate spontaneous flow. Critical Notification Critical Value: No <Conclusion> 1. Negative for DVT in the bilateral lower extremities Signed by : Nash Hartley, Electronically Approved : 12/19/2020 14:06:19
== END ==
LOC: US 12:22
PROVIDERS: ATTEND Internal Medicine Cardiovascular Disease
DX: R60.0 Localized edema (principal)
CPT/HCPCS: 93970

== ENCOUNTER 2020-12-27 07:19 | Outpatient (CLI) | payer MEDICARE ==
[~2020-12-27] VITALS: Ht 180.3 cm; Wt 102.1 kg
[2020-12-27] MEDS ORDERED: LIDOCAINE WITH 8.4% SOD BICARB 3 ML DISP.SYRIN. ONE (08:00)
[2020-12-27 08:07] LABS: BASO % 1 % (0-3); EOS # 0.2 x10^3/uL (0.0-0.7); EOS % 3 % (0-3); HEMATOCRIT 45.4 % (39.0-53.0); HEMOGLOBIN 15.3 g/dL (13.0-17.5); LYMPH # 1.8 x10^3/uL (1.0-4.8); LYMPH % 36 % (24-48); MEAN CORPUSCULAR HEMOGLOBIN 31 pg (25-35); MEAN CORPUSCULAR HGB CONC 34 g/dL (31-37); MEAN CORPUSCULAR VOLUME 92 fL (79-100); MONO # 0.5 x10^3/uL (0.0-1.1); MONO % 10 % (0-9); NEUT # 2.6 x10^3/uL (1.8-7.7); NEUT % 51 % (31-73); PLATELET COUNT 234 x10^3/uL (140-400); RED BLOOD COUNT 4.93 x10^6/uL (4.30-5.70); RED CELL DISTRIBUTION WIDTH 13.2 % (11.5-14.5); WHITE BLOOD COUNT 5.1 x10^3/uL (4.0-11.0)
[2020-12-27 08:14] VITALS: BP 150/91
[2020-12-27] MEDS ORDERED: CLIN75GE4 TP (08:14)
[2020-12-27] MEDS ORDERED: TRIA80OI TP (08:14)
[2020-12-27] MEDS ORDERED: GENT3.5O9 (08:14)
[2020-12-27 08:17] LABS: PROTHROMBIN TIME PATIENT 12.9 SEC (11.7-14.0)
[2020-12-27] MEDS ORDERED: LIDOCAINE WITH 8.4% SOD BICARB 3 ML DISP.SYRIN. INJ ONE (08:45)
[2020-12-27 09:35] VITALS: BP 140/57
[2020-12-27 09:50] VITALS: BP 143/88
--- NOTE | 2020-12-27 10:11 | NUR ---
pt A&O x4. denies any pain. VSS. tolerating po well. ambulated w/o problem. bandaid on left axilla site has tiny pinprick site drainage that is noted. no bleeding or swelling at site. d/c instructions reviewed and questions answered. ambulated out to vehicle w/o problem
--- NOTE | 2020-12-27 12:15 | RAD ---
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 Sedation: Local anesthesia only. Antibiotics: None Sterility: The procedure was performed in its entirety using appropriate elements of sterile technique. Consent: The procedure was explained in its entirety to the patient or the patients designated customer loyalty representative by a member of the treatment team, including a discussion of the risks, benefits and commonly accepted alternatives to the procedure, as well as the expected consequences of no therapy whatsoever. Discussion of the risks included, but was not limited to, those that are most frequent and those that are rare but possibly severe or life-threatening, as well as the possibility of unforeseen complications. Technique and Findings: Following informed consent, the patient was prepped and draped in usual sterile fashion. Ultrasound of the left axilla was performed. There are 2 lymph nodes which are morphologically normal and demonstrate normal size as well, with distinct fatty daquan. No other adenopathy is seen. No masses are evident. 1% lidocaine was used to achieve local anesthesia. A small dermatotomy was made. Under ultrasound guidance, an 17-gauge needle was advanced towards the largest of the left axillary lymph nodes and 7 separate 18-gauge biopsy passes were performed yielding 6 tissue fragments which were divided between formalin and RPMI. Hemostasis was achieved with manual compression following removal of the needle guide. Complications: No immediate Impression: 1. Ultrasound-guided biopsy of left axillary adenopathy is described. Sonographically these lymph nodes are normal in size and morphology. The most conspicuous lymph node was chosen for biopsy.
== END 2020-12-27 10:15 | disposition home or self-care (01) ==
LOC: INTRAD 07:19
PROVIDERS: ATTEND Family Medicine
DX: R59.9 Enlarged lymph nodes, unspecified (principal); I10 Essential (primary) hypertension; K21.9 Gastro-esophageal reflux disease without esophagitis; Z85.828 Personal history of other malignant neoplasm of skin; Z72.89 Other problems related to lifestyle; Z79.899 Other long term (current) drug therapy; Z20.822 Contact with and (suspected) exposure to COVID-19; Z98.890 Other specified postprocedural states; Z80.0 Family history of malignant neoplasm of digestive organs
CPT/HCPCS: 36415; 38505; 76942; 85025; 85610; 87426; C9803; J3490; U0003; 88184; 88185

== ENCOUNTER → 2021-01-02 | Outpatient (CLI) | payer MEDICARE ==
[2020-12-27 09:50] VITALS: BP 143/88
[~2021-01-02] MED LIST changes: +CLIN75GE4 TP; +GENT3.5O9; +TRIA80OI TP
[2021-01-02 09:27] LABS: BASO % 1 % (0-3); EOS # 0.1 x10^3/uL (0.0-0.7); EOS % 2 % (0-3); HEMATOCRIT 43.9 % (39.0-53.0); HEMOGLOBIN 15.4 g/dL (13.0-17.5); LYMPH # 1.7 x10^3/uL (1.0-4.8); LYMPH % 31 % (24-48); MEAN CORPUSCULAR HEMOGLOBIN 32 pg (25-35); MEAN CORPUSCULAR HGB CONC 35 g/dL (31-37); MEAN CORPUSCULAR VOLUME 91 fL (79-100); MONO # 0.6 x10^3/uL (0.0-1.1); MONO % 11 % (0-9); NEUT # 3.1 x10^3/uL (1.8-7.7); NEUT % 55 % (31-73); PLATELET COUNT 241 x10^3/uL (140-400); RED BLOOD COUNT 4.84 x10^6/uL (4.30-5.70); RED CELL DISTRIBUTION WIDTH 13.2 % (11.5-14.5); WHITE BLOOD COUNT 5.6 x10^3/uL (4.0-11.0)
[2021-01-02 09:46] LABS: BILIRUBIN,URINE NEGATIVE (NEG); CLARITY,URINE CLEAR; COLOR,URINE YELLOW; NITRITE,URINE NEGATIVE (NEG); PH,URINE 6.5 (<5.0-8.0); PROTEIN,URINE NEGATIVE (NEG-TRACE); UROBILINOGEN,URINE 0.2 mg/dL (0.2 mg/dL)
[2021-01-02 09:56] LABS: ALBUMIN 3.7 g/dL (3.4-5.0); CALCIUM 9.1 mg/dL (8.5-10.1); CREATININE 1.1 mg/dL (0.7-1.3); GFR 66.6; POTASSIUM 4.1 mmol/L (3.5-5.1); TOTAL BILIRUBIN 0.7 mg/dL (0.2-1.0); TOTAL PROTEIN 7.3 g/dL (6.4-8.2)
[2021-01-02 09:59] LABS: CHOLESTEROL/HDL RATIO 3.2
== END ==
LOC: LAB 08:54
PROVIDERS: ATTEND Family Medicine
DX: Z13.220 Encounter for screening for lipoid disorders (principal); Z12.5 Encounter for screening for malignant neoplasm of prostate; R35.0 Frequency of micturition; I10 Essential (primary) hypertension
CPT/HCPCS: 36415; 80053; 80061; 81003; 85025; G0103

== ENCOUNTER → 2021-06-21 | Outpatient (CLI) | payer MEDICARE ==
[~2021-06-21] MED LIST changes: -ACYC800T PO; +ACYC800T88 PO
--- NOTE | 2021-06-21 16:33 | RAD ---
MR#: [id number] Date of Study: 06/21/2021 Ordering Physician: VIN CARIAS, Referring Physician: VIN CARIAS, Tech: Jean Claude Buck MBA, RDMS, RVT, RDCS, RTR APPROVED REPORT Bilateral Lower Extremity Venous Study for DVT Patient Location: OUT-PATIENT Indications Lower Extremity Edema: Bilateral Vein Imaging (Right) CFV (R): Compressible SFJ (R): Compressible FEM (R): Compressible POP (R): Compressible DFV (R): Compressible PTV (R): Spontaneous Peroneals (R): Spontaneous Vein Imaging (Left) CFV (L): Compressible SFJ (L): Compressible FEM (L): Compressible POP (L): Compressible DFV (L): Compressible PTV (L): Spontaneous Peroneals (L): Spontaneous Doppler Evaluation (Right) CFV (R): Spontaneous POP (R):Spontaneous Doppler Evaluation (Left) CFV (L):Spontaneous POP (L):Spontaneous Findings The bilateral lower extremity deep veins were evaluated for thrombus with color Doppler, spectral and grayscale images. On the right the grayscale images of the common femoral, superficial femoral and popliteal veins do n ot demonstrate any evidence of thrombus and these veins appear to be compressible. The below-knee vei ns were not well visualized but grossly appear to be compressible. Spectral imaging and color Doppler do not reveal any evidence of obstruction to flow with normal respirophasic variation above the knee . Below the knee there is spontaneous flow noted. On the left, the grayscale images of the common femoral, superficial femoral and popliteal veins do n ot demonstrate any evidence of thrombus and these veins appear to be compressible. The below-knee vei ns again were not well visualized but grossly appear to be compressible. Spectral imaging and color D oppler do not reveal any evidence of obstruction to flow with normal respirophasic variation above th e knee. The below-knee veins demonstrate spontaneous flow. Critical Notification Critical Value: No <Conclusion> 1. Negative for DVT in the bilateral lower extremities Signed by : Nash Hartley, Electronically Approved : 06/21/2021 16:32:56
--- NOTE | 2021-06-21 16:35 | RAD ---
MR#: [id number] Date of Study: 06/21/2021 Ordering Physician: VIN CARIAS, Referring Physician: VIN CARIAS, Tech: Jean Claude Buck MBA, RDMS, RVT, RDCS, RTR APPROVED REPORT Patient Location : OUT-PATIENT Indications Lower Extremity Edema : Bilateral Lesser Saphenous Veins (LSV) Significant venous reflux is noted in the Left LSV. Findings Grayscale images the bilateral saphenofemoral junctions are grossly unremarkable. The right great saphenous vein was unable to be visualized. Correlate with prior history of venous s tripping or ablation The left great saphenous vein has been ablated. The left lesser saphenous vein measures 3.7 mm and has a maximum reflux time of 2 seconds. The right lesser saphenous vein is not visualized, correlate with clinical history any ablation thera py or venous stripping. Critical Notification Critical Value: No <Conclusion> 1. Presumed right greater saphenous vein and lesser saphenous vein ablation, correlate with clinical history. 2. Known left greater saphenous vein ablation. 3. Positive for reflux in the left lesser saphenous vein. Signed by : Nash Harltey, Electronically Approved : 06/21/2021 16:34:41
== END ==
LOC: US 14:27
PROVIDERS: ATTEND Internal Medicine Cardiovascular Disease
DX: R60.0 Localized edema (principal)
CPT/HCPCS: 93970

== ENCOUNTER → 2021-07-05 | Outpatient (CLI) | payer OTHER ==
--- NOTE | 2021-07-05 16:31 | KCIC ---
EXAM: CT coronary artery calcium screening; radiologist over read. HISTORY: Essential hypertension. TECHNIQUE: Computed tomographic images of the chest were obtained without contrast. Multiplanar refor matting was performed. *One or more of the following individualized dose reduction techniques were utilized for this examina tion: 1. Automated exposure control. 2. Adjustment of the mA and/or kV according to patient size. 3. Use of iterative reconstruction technique. COMPARISON: 01/30/2018. FINDINGS: The heart is normal in size. The aorta is normal in caliber. There is calcified atheroscler otic plaque involving the coronary arteries. No pathologically enlarged lymph node is seen. There is a tiny hiatal hernia. There is no pneumothorax, pleural effusion, infiltrate or suspicious pulmonary nodule. There is no suspicious or acute finding involving the upper abdomen or osseous structures. Coronary artery calcium score: Left main artery - 0 Left anterior descending - 498.9 Left circumflex - 0 Right coronary artery - 23.3 Posterior descending artery - 0 TOTAL = 522.2 IMPRESSION: 1. Calcified atherosclerotic plaque involving the coronary arteries. The coronary artery calcium scor e is 522.2. There is a large amount of calcified atherosclerotic plaque. 2. Tiny hiatal hernia. Electronically signed by: Billie Kay MD (07/05/2021 4:28 PM) [id number]
== END ==
LOC: KCIC CT 14:18
PROVIDERS: ATTEND Internal Medicine Cardiovascular Disease
DX: I25.10 Atherosclerotic heart disease of native coronary artery without angina pectoris (principal); I10 Essential (primary) hypertension
CPT/HCPCS: 75571

== ENCOUNTER → 2021-08-17 | Outpatient (CLI) | payer MEDICARE ==
--- NOTE | 2021-08-17 16:23 | RAD ---
MR#: [id number] Date of Study: 08/17/2021 Ordering Physician: VIN CARIAS, Referring Physician: ETIENNE CERDA Tech: VITOR Perry APPROVED REPORT Test Type: Exercise Stress Nurse/Tech: ETELVINA PORTILLO Test Indications: ARRYTHMIA Cardiac History: HTN, SEE EMR Medications: SEE EMR Medical History: SEE EMR Resting ECG: SR Resting Heart Rate: 75 bpm Resting Blood Pressure: 133/86mmHg Pretest Chest Pain: No chest pain Nurse/Tech Notes S1,S2, RRR, LUNGS CTA, DENIED CHEST PAIN OR SOA. VSS. Consent: The procedure was explained to the patient in lay terms. Informed consent was witnessed. Jefe eout was entered into [employer]. History and Stress Test performed by RT Earl (R) (N) Stress Symptoms PT TOLERATED TESTING WELL, NO C/O CHEST PAIN OR SOA. PVC'S NOTED ON EKG DURING EXERCISE. POST EXERCISE Reason for Termination: Reached target heart rate Target HR: 129 Max HR: 136 bpm 105% of Maximum Predicted HR: 129 bpm Exercise duration: 10:37 min:sec, 4 Stage Exercise capacity: 13.4METs Max Blood Pressure: 162/77mmHg Blood Pressure response to exercise: WNL Heart Rate response to exercise: WNL Chest Pain: No. Arrhythmia: . PVC'S NOTED DURING EXERCISE. INTERPRETATION Stress EKG Conclusion: Baseline EKG showed sinus rhythm. No ischemic changes at peak stress. Few PV C's without any significant arrhythmias. Imaging Protocol IMAGE PROTOCOL: Rest Tc-99m/stress Tc-99m 1 day Rest: Stress: Viability: Radiopharm.Tc99m OmighduayXr09h Sestamibi Qoks38rZv 33mCi Duration 15min. 13min. Img Date 08/17/2021 08/17/2021 Inj-Img [id number]. 60min. Post-Injection Exercise: 1 minute Rest Admin Site:IV - Left AntecubitalAdministrator:VITOR Perry Stress Admin Site: IV - Left AntecubitalAdministrator: Gio Joseph, RT (R)(N) STRESS DATA End Diast. Vol.112.0mlLVEDV index BSA50.0ml End Syst. Vol.31.0mlLVESV index BSA14.0ml Myocardial Wpqo846.0gEject. Ixflalwg44.0% Stress Scores Regional WT1.00Summed WT5.00 Regional WM0.00Summed WM0.00 Study quality was good. Left Ventricular size was Normal at Rest and Stress. Lung uptake was . Left Ventricular ejection fraction is 66%. The rest and stress images show normal perfusion, normal contraction and thickening. LV Perf. Quant 17 Seg. SSS3.00 17 Seg. SRS13.00 17 Seg. SDS0.00 Stress Defect Extent (% LAD)8.10Rest Defect Extent (% LAD)12.50Rev. Defect Extent (% LAD)0.00 Stress Defect Extent (% LCX) 0.00Rest Defect Extent (% LCX)5.00Rev. Defect Extent (% LCX)0.00 Stress Defect Extent (% RCA)0.00Rest Defect Extent (% RCA)66.70Rev. Defect Extent (% RCA)0.00 Stress Defect Extent (% BEBETO)3.30Rest Defect Extent (% BEBETO)26.70Rev. Defect Extent (% BEBETO)0.00 Conclusion 1. Treadmill exercise cardioisotope stress test did not show any evidence of ischemia or infarct. 2. Normal left ventricular systolic function with ejection fraction calculated at 66%. 3. Low risk for cardiac events. Signed by : Vinod Farrell, Electronically Approved : 08/17/2021 16:22:38
== END ==
LOC: NM 09:16
PROVIDERS: ATTEND Internal Medicine Cardiovascular Disease
DX: I47.2 Ventricular tachycardia (principal); I10 Essential (primary) hypertension
CPT/HCPCS: 78452; 93017; A9500

== ENCOUNTER → 2022-03-12 | Outpatient (CLI) | payer MEDICARE ==
[2022-03-12 07:45] LABS: BASO % 1 % (0-3); EOS # 0.1 x10^3/uL (0.0-0.7); EOS % 3 % (0-3); HEMATOCRIT 41.8 % (39.0-53.0); HEMOGLOBIN 14.3 g/dL (13.0-17.5); LYMPH # 1.3 x10^3/uL (1.0-4.8); LYMPH % 30 % (24-48); MEAN CORPUSCULAR HEMOGLOBIN 32 pg (25-35); MEAN CORPUSCULAR HGB CONC 34 g/dL (31-37); MEAN CORPUSCULAR VOLUME 93 fL (79-100); MONO # 0.5 x10^3/uL (0.0-1.1); MONO % 12 % (0-9); NEUT # 2.2 x10^3/uL (1.8-7.7); NEUT % 54 % (31-73); PLATELET COUNT 225 x10^3/uL (140-400); RED BLOOD COUNT 4.51 x10^6/uL (4.30-5.70); RED CELL DISTRIBUTION WIDTH 13.4 % (11.5-14.5); WHITE BLOOD COUNT 4.2 x10^3/uL (4.0-11.0)
[2022-03-12 08:06] LABS: ALBUMIN 3.6 g/dL (3.4-5.0); CALCIUM 8.8 mg/dL (8.5-10.1); CREATININE 1.1 mg/dL (0.7-1.3); GFR 66.4; POTASSIUM 3.9 mmol/L (3.5-5.1); TOTAL BILIRUBIN 0.9 mg/dL (0.2-1.0); TOTAL PROTEIN 7.2 g/dL (6.4-8.2)
[2022-03-12 08:11] LABS: CHOLESTEROL/HDL RATIO 2.5
== END ==
LOC: LAB 07:08
PROVIDERS: ATTEND Family Medicine
DX: Z12.5 Encounter for screening for malignant neoplasm of prostate (principal); Z13.220 Encounter for screening for lipoid disorders; I10 Essential (primary) hypertension
CPT/HCPCS: 36415; 80053; 80061; 85025; G0103